=== PATIENT | female | born 1985 | race Caucasian/White ===

== ENCOUNTER 2022-05-14 08:47 | Outpatient (CLI) | payer OTHER, SELFPAY ==
[2022-05-21 01:23] LABS: HSV 1 Subtype by PCR Not Detected; HSV 2 Subtype by PCR Detected
== END 2022-05-14 08:48 | disposition home or self-care (01) ==
PROVIDERS: Visit Provider Nurse Practitioner Family
DX: N89.8 Other specified noninflammatory disorders of vagina; N94.9 Unspecified condition associated with female genital organs and menstrual cycle
CPT/HCPCS: 87252; 87529